=== PATIENT | female | born 1975 | race Caucasian/White ===

== ENCOUNTER 2020-08-31 14:09 | Emergency (ER) | payer OTHER ==
[2020-08-31] MEDS ORDERED: fentaNYL 50 MCG/ML SDV IVPUSH ONE (15:22)
[2020-08-31] MEDS ORDERED: Ondansetron 4 MG/2 ML SDV IVPUSH ONE (15:22)
[2020-08-31] MEDS ORDERED: Ketorolac 30 MG/ML SDV IVPUSH ONE (15:22)
[2020-08-31] MEDS ORDERED: Sodium Chloride 0.9% 1,000 ML IV ONE (15:22)
--- NOTE | 2020-08-31 15:32 | EDM.PDOC ---
ED HPI GENERAL MEDICAL PROBLEM - General Chief Complaint: Flank Pain Stated Complaint: BACK PAIN, SIDE PAIN Time Seen by Provider: 08/31/20 14:11 Source of Information: Reports: Patient History Limitations: Reports: No Limitations - History of Present Illness INITIAL COMMENTS - FREE TEXT/NARRATIVE: Presents reporting back pain since 10:00 this morning. The pain radiates to the left flank and left lower quadrant. She is nauseated and has vomited 4 times. No personal or family history of kidney stones, no dysuria. No abdominal pain diarrhea or constipation. No fevers. No vaginal symptoms, had a tubal ligation. she has a history of controlled diabetes mellitus type 2 and hypertension as well as obesity. She does not have an history of low back problems. She does have a history of upper back problems which resolved after breast reduction. left flank, wraps to R abdomen Pain Score (Numeric/FACES): 7 - Related Data Allergies Allergy/AdvReac Type Severity Reaction Status Date / Time No Known Allergies Allergy Verified 08/31/20 14:17 Home Meds: Home Meds Liraglutide [Victoza] 1.8 mg SUBCUT DAILY 03/15/18 [History] Losartan/Hydrochlorothiazide [Losartan-HCTZ 100-12.5 MG] 1 tab PO DAILY 03/15/18 [History] Nebivolol HCl [Bystolic] 10 mg PO DAILY 03/15/18 [History] Pioglitazone HCl 30 mg PO DAILY 03/15/18 [History] Ketorolac [Toradol] 10 mg PO TID PRN 5 Days tab 08/31/20 [Rx] Ondansetron [Zofran ODT] 1 tab PO Q6H PRN #4 tab.dis 08/31/20 [Rx] Tamsulosin HCl [Flomax] 0.4 mg PO DAILY #14 capsule 08/31/20 [Rx] glipiZIDE [Glucotrol XL] 5 mg PO DAILY 08/31/20 [History] Past Medical History HEENT History: Reports: Other (See Below) Other HEENT History: wears glasses Cardiovascular History: Reports: Hypertension Gastrointestinal History: Reports: None Genitourinary History: Reports: None Musculoskeletal History: Reports: Back Pain, Chronic Neurological History: Reports: Migraines Endocrine/Metabolic History: Reports: Diabetes, Type II, Obesity/BMI 30+ - Past Surgical History Head Surgeries/Procedures: Reports: None GI Surgical History: Reports: Cholecystectomy Female Surgical History: Reports: Breast Reduction, Tubal Ligation Social & Family History - Family History Family Medical History: Noncontributory - Tobacco Use Tobacco Use Status *Q: Never Tobacco User - Recreational Drug Use Recreational Drug Use: No ED ROS GENERAL - Review of Systems Review Of Systems: Comprehensive ROS is negative, except as noted in HPI. ED EXAM, RENAL/ - Physical Exam Exam: See Below Exam Limited By: No Limitations General Appearance: Alert, No Apparent Distress Ears: Normal External Exam Nose: Normal Inspection Throat/Mouth: Normal Inspection Head: Atraumatic, Normocephalic Neck: Normal Inspection Respiratory/Chest: No Respiratory Distress, Lungs Clear, Normal Breath Sounds Cardiovascular: Normal Peripheral Pulses, Regular Rate, Rhythm GI/Abdominal: Soft Back Exam: CVA Tenderness (L), CVA Tenderness (R) (less so). No: Paraspinal Tenderness, Vertebral Tenderness Extremities: Normal Inspection Neurological: Alert, Oriented, Normal Cognition Psychiatric: Normal Affect, Normal Mood Skin Exam: Warm, Dry, Intact, Normal Color, No Rash Lymphatic: No Adenopathy Course - Vital Signs Last Recorded V/S: Last Vital Signs Temp 35.9 C L 08/31/20 14:15 Pulse 88 08/31/20 14:15 Resp 18 08/31/20 14:15 BP 159/89 H 08/31/20 14:15 Pulse Ox 98 08/31/20 14:15 - Orders/Labs/Meds Labs: Laboratory Tests 08/31/20 08/31/20 08/31/20 Range/Units 13:20 15:28 15:28 WBC 17.19 H (4.0-11.0) K/uL RBC 4.46 (4.30-5.90) M/uL Hgb 12.7 (12.0-16.0) g/dL Hct 39.4 (36.0-46.0) % MCV 88.3 (80.0-98.0) fL MCH 28.5 (27.0-32.0) pg MCHC 32.2 (31.0-37.0) g/dL RDW Std Deviation 46.1 (28.0-62.0) fl RDW Coeff of Ida 14 (11.0-15.0) % Plt Count 335 (150-400) K/uL MPV 9.30 (7.40-12.00) fL Neut % (Auto) 85.1 H (48.0-80.0) % Lymph % (Auto) 10.8 L (16.0-40.0) % [place] % (Auto) 3.8 (0.0-15.0) % Eos % (Auto) 0.2 (0.0-7.0) % Baso % (Auto) 0.1 (0.0-1.5) % Neut # (Auto) 14.6 H (1.4-5.7) K/uL Lymph # (Auto) 1.9 (0.6-2.4) K/uL Swift # (Auto) 0.7 (0.0-0.8) K/uL Eos # (Auto) 0.0 (0.0-0.7) K/uL Baso # (Auto) 0.0 (0.0-0.1) K/uL Nucleated RBC % 0.0 /100WBC Nucleated RBCs # 0 K/uL Sodium 137 (136-145) mmol/L Potassium 4.0 (3.5-5.1) mmol/L Chloride 102 (98-107) mmol/L Carbon Dioxide 24.9 (21.0-32.0) mmol/L BUN 26 H (7.0-18.0) mg/dL Creatinine 1.4 H (0.6-1.0) mg/dL Est Cr Clr Drug Dosing 42.86 mL/min Estimated GFR (MDRD) 41.0 ml/min Glucose 158 H (74-106) mg/dL Calcium 9.2 (8.5-10.1) mg/dL Total Bilirubin 0.3 (0.2-1.0) mg/dL AST 15 (15-37) IU/L ALT 16 (14-63) IU/L Alkaline Phosphatase 82 (46-116) U/L Total Protein 7.8 (6.4-8.2) g/dL Albumin 3.6 (3.4-5.0) g/dL Globulin 4.2 H (2.6-4.0) g/dL Albumin/Globulin Ratio 0.9 (0.9-1.6) Urine Color YELLOW Urine Appearance SLT CLOUDY Urine pH 7.5 (5.0-8.0) Ur Specific [place] 1.020 (1.001-1.035) Urine Protein NEGATIVE (NEGATIVE) mg/dL Urine Glucose (UA) NEGATIVE (NEGATIVE) mg/dL Urine Ketones TRACE H (NEGATIVE) mg/dL Urine Occult Blood LARGE H (NEGATIVE) Urine Nitrite NEGATIVE (NEGATIVE) Urine Bilirubin NEGATIVE (NEGATIVE) Urine Urobilinogen 0.2 (<2.0) EU/dL Ur Leukocyte Esterase TRACE H (NEGATIVE) Urine RBC 20-25 (0-2/HPF) Urine WBC 2-3 (0-5/HPF) Ur Epithelial Cells OCCASIONAL (NONE-FEW) Urine Bacteria FEW (NEGATIVE) Meds: Medications Discontinued Medications Generic Name Dose Route Start Last Admin Trade Name Freq PRN Reason Stop Dose Admin Fentanyl 50 mcg 08/31/20 15:22 08/31/20 15:33 Fentanyl IVPUSH 08/31/20 15:23 50 mcg ONETIME ONE Administration Sodium Chloride 1,000 mls @ 999 mls/hr 08/31/20 15:22 08/31/20 15:32 Normal Saline IV 08/31/20 16:22 999 mls/hr .Bolus ONE Administration Ketorolac Tromethamine 30 mg 08/31/20 15:22 08/31/20 15:33 Toradol IVPUSH 08/31/20 15:23 30 mg ONETIME ONE Administration Ondansetron HCl 4 mg 08/31/20 15:22 08/31/20 15:33 Zofran IVPUSH 08/31/20 15:23 4 mg ONETIME ONE Administration Departure - Departure Time of Disposition: 17:18 Disposition: Home, Self-Care 01 Condition: Good Clinical Impression: Renal and ureteric calculus - Discharge Information Prescriptions: Tamsulosin HCl [Flomax] 0.4 mg PO DAILY #14 capsule Ketorolac [Toradol] 10 mg PO TID PRN 5 Days tab PRN Reason: Pain Referrals: Darrell Henderson MD [Primary Care Provider] - Forms: ED Department Discharge Additional Instructions: The following information is given to patients seen in the emergency department who are being discharged to home. This information is to outline your options for follow-up care. We provide all patients seen in our emergency department with a follow-up referral. The need for follow-up, as well as the timing and circumstances, are variable depending upon the specifics of your emergency department visit. If you don't have a primary care physician on staff, we will provide you with a referral. We always advise you to contact your personal physician following an emergency department visit to inform them of the circumstance of the visit and for follow-up with them and/or the need for any referrals to a consulting specialist. The emergency department will also refer you to a specialist when appropriate. This referral assures that you have the opportunity for follow-up care with a s pecialist. All of these measure are taken in an effort to provide you with optimal care, which includes your follow-up. Under all circumstances we always encourage you to contact your private physici an who remains a resource for coordinating your care. When calling for follow-up care, please make the office aware that this follow-up is from your recent emergency room visit. If for any reason you are refused follow-up, please contact the [facility] Emergency Department at and asked to speak to the emergency department charge nurse. [facility] [address] [place] [id number] 1. Drink large amounts of oral fluids. 2. Follow up in Urology. Call for an appointment. 3. Toradol 1 tablet every 8 hours as needed for pain with food. 4. Zofran under tongue every 6 hours as needed for vomiting 5. Tamsulosin one tablet once daily to aid in stone movement 6. Watch your blood sugars. During times of stress and pain, your blood sugar may run higher. 7. Warning signs to return to the emergency room: Fever, vomiting and not keeping down oral fluids, burning urgency and frequency of urination Sepsis Event Note (ED) - Evaluation Sepsis Screening Result: No Definite Risk - Focused Exam Vital Signs: Vital Signs Temp Pulse Resp BP Pulse Ox 08/31/20 14:15 35.9 C L 88 18 159/89 H 98
[2020-08-31 16:11] LABS: CARBON DIOXIDE,CO2 24.9 mmol/L (21.0-32.0)
--- NOTE | 2020-08-31 17:07 | CT ---
Indication: Left flank pain Technique: Volumetric multidetector CT images of the abdomen and pelvis were without the administration of intravenous contrast. Comparison: None available. Number of previous computed tomography exams in the last 12 months is 0. Number of previous nuclear medicine myocardial perfusion studies in the last 12 months is 0. Findings: There is minimal bibasilar atelectasis versus parenchymal scar with traction bronchiectasis seen in the partially visualized right lung base. The liver is moderately enlarged with hepatic steatosis. The gallbladder is surgically absent. There is mild reservoir dilatation of the common bile duct. The spleen is mildly prominent. The stomach and duodenum are grossly unremarkable. The pancreas is normal in attenuation without significant atrophy. The adrenal glands are unremarkable. There is mild nonspecific left-sided perinephric stranding with demonstration of likely a small 3.7 millimeter calculus just at the ureteropelvic junction. There is no evidence of distal obstructing calculus. There is moderate stool appreciated throughout the colon with minimal distal colonic diverticulosis. The appendix is unremarkable. Somewhat reactive appearing retroperitoneal and mesenteric lymph nodes are appreciated otherwise, there is no evidence of adenopathy. The aorta is nonaneurysmal. There is no significant atherosclerotic disease appreciated. The solid pelvic viscera are grossly unremarkable. There is no free fluid or free air. The anterior abdominal wall is intact without significant hernias. The lumbar vertebral body heights are grossly maintained in satisfactory alignment without evidence of displaced fracture, lytic or blastic lesion. Impression: Demonstration of a 3.7 millimeter calculus at the left ureteropelvic junction with mild proximal hydronephrosis and nonspecific perinephric stranding. Otherwise, no acute intra-abdominal abnormality is appreciated. Please note that all CT scans at this facility use dose modulation, iterative reconstruction, and/or weight-based dosing when appropriate to reduce radiation dose to as low as reasonably achievable. Dictated by Cole Burns MD @ Aug 31 2020 4:57PM Signed by Dr. Cole Burns @ Aug 31 2020 5:06PM
== END 2020-08-31 17:38 | disposition home or self-care (01) ==
LOC: MW.ED 14:09
DX: N13.2 Hydronephrosis with renal and ureteral calculous obstruction (principal); I10 Essential (primary) hypertension; E11.9 Type 2 diabetes mellitus without complications; E66.9 Obesity, unspecified; Z79.84 Long term (current) use of oral hypoglycemic drugs; Z90.49 Acquired absence of other specified parts of digestive tract; Z98.51 Tubal ligation status; Z79.899 Other long term (current) drug therapy; Z68.41 Body mass index [BMI] 40.0-44.9, adult
CPT/HCPCS: 74176; 80053; 81001; 85025; 96374; 96375; 99284; J1885; J2405; J3010; J7030